=== PATIENT | female | born 1985 | race Caucasian/White ===

== ENCOUNTER 2018-02-08 19:46 | Emergency (ER) | payer BC ==
[~2018-02-08] VITALS: Ht 162.6 cm; Wt 119.3 kg
[2018-02-08 20:10] VITALS: Ht 162.6 cm; Wt 119.3 kg
[2018-02-08 22:35] VITALS: BP 139/85
== END 2018-02-08 22:35 | disposition home or self-care (01) ==
LOC: ED 19:46
DX: H66.92 Otitis media, unspecified, left ear (principal)
CPT/HCPCS: J7509